=== PATIENT | male | born 1980 | race Hispanic/Latino ===

== ENCOUNTER 2016-10-26 17:12 | Emergency (ER) | payer SELFPAY ==
[2016-10-26] MEDS ORDERED: SODIUM CHLORIDE 0.9% (FLUSH) 10 ML SYG IV PRN (17:46)
[2016-10-26 17:57] VITALS: TEMP 97.9
--- NOTE | 2016-10-26 18:28 | ED.PDOC ---
History of Present Illness - General Chief Complaint: Cardiovascular Problem Stated Complaint: palpitations, elevated BP Time Seen by Provider: 10/26/16 17:45 Source: patient, RN notes reviewed, Vital Signs reviewed Exam Limitations: language barrier Additional Information: Forming Machine Tender used. - History of Present Illness Initial Comments: Patient is a 36 y/o male who has been checking his blood pressure for the past two days as it has been elevated. Today, it is in the 170s/110s. He initially came in for a blood pressure check, however the nurse encouraged him to be seen in the ED. He reports chest pain on the left, mild. He has had mild shortness of breath. In the morning, he is nauseous and diaphoretic. This has been going on for over a month. He does not smoke. He drinks 12 to 18 beers a day. He uses no elicit drugs. He does not know his family history. 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 He is not up to date on his immunizations. He does not have a PCP. He has not travelled outside of the [place] in the past three months. Timing/Duration: unsure Severity: moderate Improving Factors: other - beer Worsening Factors: nothing Associated Symptoms: chest pain, cough, diaphoresis, nausea/vomiting, shortness of breath Allergies/Adverse Reactions: Allergies NO KNOWN ALLERGY Allergy (Verified 10/26/16 17:58) Review of Systems - Review of Systems Constitutional: States: no symptoms reported. Denies: chills, fever EENTM: States: no symptoms reported Respiratory: States: cough, short of breath Cardiology: States: chest pain, palpitations Gastrointestinal/Abdominal: States: nausea Genitourinary: States: no symptoms reported Musculoskeletal: States: no symptoms reported Skin: States: no symptoms reported Neurological: States: no symptoms reported Endocrine: States: no symptoms reported Hematologic/Lymphatic: States: no symptoms reported All other Systems: Reviewed and Negative Past Medical History (General) - Patient Medical History Hx Seizures: No Hx Stroke: No Hx Dementia: No Hx Asthma: No Hx of COPD: No Hx Cardiac Disorders: No Hx Congestive Heart Failure: No Hx Pacemaker: No Hx Hypertension: No Hx Thyroid Disease: No Hx Diabetes: No Hx Gastroesophageal Reflux: No Hx Renal Disease: No - Vaccination History Hx Influenza Vaccination: No - Social History Hx Tobacco Use: No Family Medical History - Family History Father Family History: Unknown Living Status: Unknown Physical Exam - Physical Exam General Appearance: Alert, Anxious, Comfortable, No apparent distress Eye Exam: bilateral normal Ears, Nose, Throat: hearing grossly normal, normal ENT inspection Neck: non-tender, full range of motion, supple Respiratory: lungs clear, normal breath sounds, no respiratory distress, no accessory muscle use Cardiovascular/Chest: regular rate, rhythm, no edema, no gallop, no murmur Gastrointestinal/Abdominal: normal bowel sounds, soft, no organomegaly, tenderness - LUQ Back Exam: no CVA tenderness Extremity: normal range of motion, non-tender, normal inspection, no pedal edema , no calf tenderness Neurologic: alert, normal mood/affect, oriented x 3 Skin Exam: normal color, warm/dry Progress - EKG/XRAY/CT EKG: Sinus - 68 bpm, no ST T wave changes Comments: NML axis, NML intervals, no comparison available--NSR XRAY: chest Xray Comments: No acute process Departure - Departure Disposition: Discharge to Home or Self Care Departure Forms: ED Discharge - Pt. Copy, Patient Portal Self Enrollment Addendum entered and electronically signed by Mehdi Lindo MD 10/26/16 21 :01: Departure - Departure Clinical Impression: Alcohol abuse, daily use Hypertension Qualifiers: Hypertension type: other secondary hypertension Qualifier Code: (I15.8) Other secondary hypertension Time of Disposition: 20:48 Disposition: Discharge to Home or Self Care Condition: Good Departure Forms: ED Discharge - Pt. Copy, Patient Portal Self Enrollment Instructions: DI for Alcohol Abuse and Alcoholism, Alcohol Abuse and Alcoholism , Recommendations to Help Prevent High Blood Pressure, Treatments for High Blood Pressure: More Than Just Taking a Pill Prescriptions: Amlodipine Besylate 5 mg PO DAILY #30 tab Home Medications: Ambulatory Orders Amlodipine Besylate 5 mg PO DAILY #30 tab 10/26/16 Additional Instructions: NEED TO FOLLOW UP WITH PRIMARY MD IN ONE WEEK PATIENT TO CALL FOR APPOINTMENT; RETURN TO EMERGENCY ROOM NEEDED
[2016-10-26] MEDS ORDERED: cloNIDine HCL 0.1 MG TAB PO ONE (19:09)
--- NOTE | 2016-10-26 20:11 | RAD ---
EXAM DESCRIPTION: Chest,1 View CLINICAL HISTORY: Midsternal and intercostal chest wall pain, shortness of breath COMPARISON: None FINDINGS: Cardiac silhouette is within normal limits. EKG leads project over the chest. There is no focal parenchymal or pleural disease. There is no acute osseous process visualized. IMPRESSION: No evidence of acute cardiopulmonary disease. Electronically signed by: Lobo Mehta MD 10/26/2016 8:10 PM CDT
[2016-10-26 20:20] VITALS: O2SAT 97
[2016-10-26 21:17] VITALS: BP 152/88
== END 2016-10-26 21:06 | disposition home or self-care (01) ==
LOC: ER 17:12
DX: I15.8 Other secondary hypertension (principal); F10.10 Alcohol abuse, uncomplicated

== ENCOUNTER 2016-12-11 22:15 | Emergency (ER) | payer SELFPAY ==
[2016-12-11 22:42] VITALS: TEMP 96.8; O2SAT 98
[2016-12-11] MEDS ORDERED: cloNIDine HCL 0.1 MG TAB PO ONE (22:50)
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
[2016-12-11 23:29] VITALS: BP 152/90
== END 2016-12-11 23:29 | disposition home or self-care (01) ==
LOC: ER 22:15
DX: I10 Essential (primary) hypertension (principal); F10.10 Alcohol abuse, uncomplicated

== ENCOUNTER 2017-02-12 20:23 | Emergency (ER) | payer SELFPAY ==
--- NOTE | 2017-02-12 20:58 | RAD ---
PROCEDURE: Chest,2 Views CLINICAL HISTORY: Chest pain INDICATION: Same as above COMPARISON: 10/26/2016 TECHNIQUE: PA and and lateral chest radiographs were obtained. FINDINGS: The lung barajas are well inflated. There are no discrete airspace infiltrates, pneumothoraces or pleural effusions. The pulmonary vascularity is normal The cardiomediastinal silhouette is unremarkable for patient's age and sex. IMPRESSION: There is no acute pleural-parenchymal process seen in the imaged lung barajas. Place of interpretation: [facility]. Electronically signed by: Darius Zendejas MD 02/12/2017 8:56 PM CDT Workstation: [id number]
[2017-02-12] MEDS ORDERED: CHLORHEXIDINE GLUCONATE 4 % 15 ML UD TOP ONE (21:01)
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
[2017-02-12 21:09] VITALS: TEMP 98.7
[2017-02-12] MEDS ORDERED: LISINOPRIL 10 MG TAB PO ONE (21:19)
[2017-02-12] MEDS ORDERED: SULFA/TRIMETH 800/160 (DS) TAB 1 EA TAB PO ONE (21:19)
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
[2017-02-12 21:45] VITALS: BP 145/101; O2SAT 100
== END 2017-02-12 22:00 | disposition home or self-care (01) ==
LOC: ER 20:23
DX: S00.83XA Contusion of other part of head, initial encounter (principal); S01.81XA Laceration without foreign body of other part of head, initial encounter; I10 Essential (primary) hypertension; Y04.1XXA Assault by human bite, initial encounter; Y92.9 Unspecified place or not applicable

== ENCOUNTER 2017-05-08 17:23 | Emergency (ER) | payer SELFPAY ==
[2017-05-08] MEDS ORDERED: amLODIPine BESYLATE 5 MG TAB PO ONE (17:57)
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
--- NOTE | 2017-05-08 18:19 | RAD ---
EXAM DESCRIPTION: Chest,1 View CLINICAL HISTORY: chest pain COMPARISON: 12 February 2017 TECHNIQUE: AP portable chest FINDINGS: The lungs are clear. There is no infiltrate or effusion. The heart is normal size. IMPRESSION: Normal portable chest Electronically signed by: Yaya Luke MD 05/08/2017 6:17 PM CDT
[2017-05-08] MEDS ORDERED: SODIUM CHLORIDE 0.9% 1000ML 1,000 ML IVS ONE (18:46)
[2017-05-08] MEDS ORDERED: LISINOPRIL 10 MG TAB PO ONE (18:53)
[2017-05-08 19:27] VITALS: O2SAT 99
[2017-05-08 21:11] VITALS: BP 131/73; TEMP 98.7
== END 2017-05-08 21:11 | disposition home or self-care (01) ==
LOC: ER 17:23
DX: R07.9 Chest pain, unspecified (principal); I10 Essential (primary) hypertension; F10.10 Alcohol abuse, uncomplicated
CPT/HCPCS: 36415; 71010; 80053; 82550; 82553; 84484; 85025; 93005; J7030

== ENCOUNTER 2017-10-11 17:05 | Emergency (ER) | payer SELFPAY ==
[2017-10-11] MEDS ORDERED: ALUM & MAG HYDROX-SIMETHICONE 30 ML, LIDOCAINE VISCOUS 2% 15 ML PO ONE ×2 (17:38)
[2017-10-11] MEDS ORDERED: SODIUM CHLORIDE 0.9% 1000ML 1,000 ML IVS ONE ×2 (17:46→20:37)
[2017-10-11] MEDS ORDERED: PANTOPRAZOLE SODIUM IV 40 MG VIAL IV ONE (17:47)
[2017-10-11] MEDS ORDERED: SUCRALFATE 1 GM/10 ML 1 GM UD PO ONE (17:47)
[2017-10-11 17:49] VITALS: TEMP 99
[2017-10-11] MEDS ORDERED: ALUM & MAG HYDROX-SIMETHICONE 30 ML UD ONE (17:55)
[2017-10-11] MEDS ORDERED: LIDOCAINE HCL 2% (MOUTH-THROAT) 15 ML UD ONE (17:55)
[2017-10-11] MEDS ORDERED: FOLIC ACID INJ 5 MG/ML VIAL IV ONE (18:20)
--- NOTE | 2017-10-11 18:22 | RAD ---
EXAM: Chest,2 Views (accession [id number]), Abdomen Flat Upright (accession [id number]) CLINICAL INDICATION: 37-year-old male with chest pain. TECHNIQUE: Single view, PA chest was obtained. Two views of the abdomen were obtained in upright and supine positioning. COMPARISON: Single view chest 05/08/2017. FINDINGS: Chest: Unremarkable cardiac and mediastinal silhouette. Heart size is normal. Lungs are clear without focal opacity, pneumothorax or pleural effusions. The visualized bones are within normal limits. Abdomen: Gas is seen within normal caliber small and large bowel. No free air is identified. There are no abnormal calcifications. The osseous structures are within normal limits. IMPRESSION: 1. No acute cardiopulmonary abnormalities. 2. Normal bowel gas pattern. Electronically signed by: Adalgisa Ramírez MD 10/11/2017 6:20 PM CDT
--- NOTE | 2017-10-11 18:22 | RAD ---
EXAM: Chest,2 Views (accession [id number]), Abdomen Flat Upright (accession [id number]) CLINICAL INDICATION: 37-year-old male with chest pain. TECHNIQUE: Single view, PA chest was obtained. Two views of the abdomen were obtained in upright and supine positioning. COMPARISON: Single view chest 05/08/2017. FINDINGS: Chest: Unremarkable cardiac and mediastinal silhouette. Heart size is normal. Lungs are clear without focal opacity, pneumothorax or pleural effusions. The visualized bones are within normal limits. Abdomen: Gas is seen within normal caliber small and large bowel. No free air is identified. There are no abnormal calcifications. The osseous structures are within normal limits. IMPRESSION: 1. No acute cardiopulmonary abnormalities. 2. Normal bowel gas pattern. Electronically signed by: Adalgisa Ramírez MD 10/11/2017 6:20 PM CDT
[2017-10-11] MEDS ORDERED: THIAMINE HCL INJ 100 MG/ML VIAL ONE (19:00)
[2017-10-11] MEDS ORDERED: SODIUM CHLORIDE 0.9% 100ML 100 ML IVPB ONE (19:03)
--- NOTE | 2017-10-12 00:14 | ED.PDOC ---
History of Present Illness - General Chief Complaint: Cardiovascular Problem Stated Complaint: elevated blood pressure;diarrhea Time Seen by Provider: 10/11/17 17:20 Source: patient Exam Limitations: no limitations - History of Present Illness Initial Comments: The patient is a 37-year-old male presenting to the emergency room secondary to 5 days of symptoms primarily of mild nausea with intermittent diarrhea. The patient reports poor oral intake over the last 5 days. He does have a history of gastritis but is not taking any medications for it. He does have a history of hypertension but is not currently taking those medications as well. The patient does have a very significant history of heavy alcohol intake. Previously he has had a blood alcohol level here up to 436. He is slightly drowsy here today. He is able to give his full medical history in detail his symptoms currently. He denies any blood in the stool. Diarrhea is watery and he reports every couple of hours over the last couple of days. He has not been eating or drinking anything with any nutrition but he has still been taking and alcohol. The patient converses as well as most people that have had 1-2 drinks. He is ambulatory without difficulty. No chest pain or palpitations. No syncope or near syncope. No recent trauma. the patient does report that he felt like his legs have been heavy for the last couple of days. Timing/Duration: unsure Severity: moderate Improving Factors: nothing Worsening Factors: nothing Associated Symptoms: loss of appetite, malaise, nausea/vomiting, weakness Allergies/Adverse Reactions: Allergies NO KNOWN ALLERGY Allergy (Verified 05/08/17 17:47) Home Medications: Ambulatory Orders Amlodipine Besylate 5 mg PO DAILY #30 tab 10/26/16 Lisinopril 10 mg PO QDPC #30 tab 02/12/17 Amlodipine Besylate 5 mg PO DAILY #30 tab 05/08/17 Lisinopril 10 mg PO DAILY #30 tab 05/08/17 Sucralfate Tab [Carafate Tab] 1 gm PO Q8HR #90 tab 10/12/17 Review of Systems - Review of Systems Constitutional: States: malaise, weakness EENTM: States: no symptoms reported Respiratory: States: no symptoms reported Cardiology: States: no symptoms reported Gastrointestinal/Abdominal: States: abdominal pain - rimarily epigastric, diarrhea, nausea Genitourinary: States: no symptoms reported Musculoskeletal: States: no symptoms reported Skin: States: no symptoms reported Neurological: States: tremors - ild, weakness Endocrine: States: no symptoms reported All other Systems: No Change from Baseline Past Medical History (General) - Patient Medical History Hx Seizures: No Hx Stroke: No Hx Dementia: No Hx Asthma: No Hx of COPD: No Hx Cardiac Disorders: No Hx Congestive Heart Failure: No Hx Pacemaker: No Hx Hypertension: Yes Hx Thyroid Disease: No Hx Diabetes: No Hx Gastroesophageal Reflux: No Hx Renal Disease: No Hx Cancer: No Hx Hepatitis C: No - Vaccination History Hx Tetanus, Diphtheria Vaccination: No Hx Influenza Vaccination: No Hx Pneumococcal Vaccination: No - Social History Hx Tobacco Use: No Hx Chewing Tobacco Use: No Hx Alcohol Use: Yes - approx 6 beers/day Hx Substance Use: No Hx Substance Use Treatment: No Hx Physical Abuse: No Hx Emotional Abuse: No Hx Suspected Abuse: No Family Medical History - Family History Father Family History: Unknown Living Status: Unknown Mother Living Status: Still Living Hx Family Hypertension: Yes Physical Exam - Physical Exam General Appearance: Alert, No apparent distress Eye Exam: bilateral normal - mildly bloodshot Ears, Nose, Throat: hearing grossly normal, normal ENT inspection, normal pharynx Neck: full range of motion, supple Respiratory: lungs clear, normal breath sounds, no respiratory distress, no accessory muscle use Cardiovascular/Chest: normal peripheral pulses, regular rate, rhythm, no edema Peripheral Pulses: radial,right: 2+, radial,left: 2+, dorsalis pedis,right: 2+, dorsalis pedis,left: 2+ Gastrointestinal/Abdominal: soft, other - mild epigastric discomfort palpation. No rebound or peritoneal signs. No palpable masses. 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, alert, normal mood/affect, oriented x 3 DTR: 2+: Patellar, left, Patellar, right Skin Exam: normal color Comments: Vital Signs - 24 hr 10/11/17 10/11/17 10/11/17 17:40 18:36 19:36 Temperature 99.0 F Pulse Rate [ 98 H 81 81 apical] Respiratory 20 20 20 Rate Blood Pressure 150/104 149/99 163/96 [left brachial] O2 Sat by Pulse 97 99 100 Oximetry 10/11/17 10/11/17 10/11/17 21:25 22:24 23:00 Temperature Pulse Rate [ 83 79 81 apical] Respiratory 20 20 16 Rate Blood Pressure 121/86 127/84 120/84 [left brachial] O2 Sat by Pulse 98 99 96 Oximetry Progress - Progress Progress: 10/12/17 00:17 the patient is a 37-year-old male presenting to the emergency room due to what I believe are complications of heavy drinking. The patient appears to have a significant gastritis and is going to be written for Carafate for 3 times daily use for the next month. He needs to cut down his alcohol intake by at least two thirds in order to help revert his symptoms. The patient also needs to brain picker Centrum Silver and take 1 tablet twice daily. He also needs to brain picker some thiamine and take 100 mg daily for the next 3 months. It is possible he may be starting to have complications neurologically from heavy drinking. He does need to follow up with his primary care doctor to be reassessed from that standpoint in the coming week when he is no longer intoxicated. He has received a dose of thiamine and folic acid here along with several liters of IV fluids here today. I do believe his intestinal symptoms will clear up with a reduction in his alcohol intake. He does need to increase his food intake as he is fairly skinny and this should also help prevent nutritional deficiencies associated with heavy alcohol intake. The patient has been monitored for approximately 7 hours and has demonstrated no clinical instability. The patient can be discharged home but he is to drink no further alcohol tonight. He is also of course not to drive tonight. - Results/Orders Results/Orders: 10/11/17 17:38 Telemetry .CONTINUOUS 10/11/17 17:39 EKG Assessment ONCE 10/11/17 17:45 EKG STAT EKG STAT 10/12/17 17:47 Thiamine HCl Inj 100 mg Sodium Chloride 0.9% 100Ml [NS (NACL 0.9%) 100ml] 100 ml IVPB ONCE Laboratory Results - last 24 hr 10/11/17 10/11/17 10/11/17 17:50 17:50 17:50 WBC 5.1 RBC 5.15 Hgb 16.7 Hct 47.3 MCV 91.9 MCH 32.4 H MCHC 35.3 RDW 13.7 Plt Count 301 MPV 7.0 L Absolute Neuts (auto) 2.50 Absolute Lymphs (auto) 2.30 Absolute Monos (auto) 0.20 Absolute Eos (auto) 0.00 Absolute Basos (auto) 0.10 Neutrophils % 49.5 Lymphocytes % 46.0 Monocytes % 3.2 Eosinophils % 0.3 L Basophils % 1.0 PT 10.6 INR 0.940 PTT (SP) 35.9 Sodium 141 Potassium 3.6 Chloride 106 Carbon Dioxide 20 L Anion Gap 18.6 H BUN < 5 L Creatinine 0.66 BUN/Creatinine Ratio 7.6 L Random Glucose 103 Serum Osmolality 278.4 Calcium 9.9 Magnesium Total Bilirubin 1.1 H AST 39 ALT 29 Alkaline Phosphatase 85 Creatine Kinase 149 CK-MB (CK-2) 2.2 CK-MB (CK-2) % Not Reportable Troponin I < 0.02 B-Natriuretic Peptide < 5.0 Serum Total Protein 8.6 H Albumin 5.1 Globulin 3.5 Albumin/Globulin Ratio 1.5 Amylase 72 TSH Urine Color Urine Appearance Urine pH Ur Specific [place] Urine Protein Urine Glucose (UA) Urine Ketones Urine Blood Urine Nitrite Urine Bilirubin Urine Urobilinogen Ur Leukocyte Esterase Urine RBC Urine WBC Ur Epithelial Cells Urine Bacteria Ethyl Alcohol 10/11/17 10/11/17 10/11/17 17:50 17:50 18:30 WBC RBC Hgb Hct MCV MCH MCHC RDW Plt Count MPV Absolute Neuts (auto) Absolute Lymphs (auto) Absolute Monos (auto) Absolute Eos (auto) Absolute Basos (auto) Neutrophils % Lymphocytes % Monocytes % Eosinophils % Basophils % PT INR PTT (SP) Sodium Potassium Chloride Carbon Dioxide Anion Gap BUN Creatinine BUN/Creatinine Ratio Random Glucose Serum Osmolality Calcium Magnesium 2.2 Total Bilirubin AST ALT Alkaline Phosphatase Creatine Kinase CK-MB (CK-2) CK-MB (CK-2) % Troponin I B-Natriuretic Peptide Serum Total Protein Albumin Globulin Albumin/Globulin Ratio Amylase TSH 1.87 Urine Color Yellow Urine Appearance Clear Urine pH 6.5 Ur Specific [place] 1.010 Urine Protein Negative Urine Glucose (UA) Negative Urine Ketones Negative Urine Blood Negative Urine Nitrite Negative Urine Bilirubin Negative Urine Urobilinogen 0.2 Ur Leukocyte Esterase Negative Urine RBC 0 Urine WBC 0 Ur Epithelial Cells 0 Urine Bacteria 0 Ethyl Alcohol 441.40 H* 10/11/17 22:56 WBC RBC Hgb Hct MCV MCH MCHC RDW Plt Count MPV Absolute Neuts (auto) Absolute Lymphs (auto) Absolute Monos (auto) Absolute Eos (auto) Absolute Basos (auto) Neutrophils % Lymphocytes % Monocytes % Eosinophils % Basophils % PT INR PTT (SP) Sodium Potassium Chloride Carbon Dioxide Anion Gap BUN Creatinine BUN/Creatinine Ratio Random Glucose Serum Osmolality Calcium Magnesium Total Bilirubin AST ALT Alkaline Phosphatase Creatine Kinase CK-MB (CK-2) CK-MB (CK-2) % Troponin I B-Natriuretic Peptide Serum Total Protein Albumin Globulin Albumin/Globulin Ratio Amylase TSH Urine Color Urine Appearance Urine pH Ur Specific [place] Urine Protein Urine Glucose (UA) Urine Ketones Urine Blood Urine Nitrite Urine Bilirubin Urine Urobilinogen Ur Leukocyte Esterase Urine RBC Urine WBC Ur Epithelial Cells Urine Bacteria Ethyl Alcohol 260.40 H* the patient has remained in normal sinus rhythm throughout his stay Of note the patient has only gone to the bathroom with one episode of diarrhea since he has been here. Departure - Departure Clinical Impression: Alcohol abuse Gastritis Qualifiers: Gastritis type: alcoholic Chronicity: acute Gastritis bleeding: without bleeding Qualified Code(s): K29.20 - Alcoholic gastritis without bleeding Disposition: Discharge to Home or Self Care Condition: Fair Departure Forms: ED Discharge - Pt. Copy, Patient Portal Self Enrollment Instructions: DI for Alcoholic Gastritis, DI for Alcohol Poisoning, DI for Alcohol Abuse and Alcoholism Referrals: Salvatore Marroquin MD [Primary Care Provider] - 1-2 Weeks Prescriptions: Sucralfate Tab [Carafate Tab] 1 gm PO Q8HR #90 tab Home Medications: Ambulatory Orders Amlodipine Besylate 5 mg PO DAILY #30 tab 10/26/16 Lisinopril 10 mg PO QDPC #30 tab 02/12/17 Amlodipine Besylate 5 mg PO DAILY #30 tab 05/08/17 Lisinopril 10 mg PO DAILY #30 tab 05/08/17 Sucralfate Tab [Carafate Tab] 1 gm PO Q8HR #90 tab 10/12/17 Additional Instructions: the patient is a 37-year-old male presenting to the emergency room due to what I believe are complications of heavy drinking. The patient appears to have a significant gastritis and is going to be written for Carafate for 3 times daily use for the next month. He needs to cut down his alcohol intake by at least two thirds in order to help revert his symptoms. The patient also needs to brain picker Centrum Silver and take 1 tablet twice daily. He also needs to brain picker some thiamine and take 100 mg daily for the next 3 months. It is possible he may be starting to have complications neurologically from heavy drinking. He does need to follow up with his primary care doctor to be reassessed from that standpoint in the coming week when he is no longer intoxicated. He has received a dose of thiamine and folic acid here along with several liters of IV fluids here today. I do believe his intestinal symptoms will clear up with a reduction in his alcohol intake. He does need to increase his food intake as he is fairly skinny and this should also help prevent nutritional deficiencies associated with heavy alcohol intake. The patient has been monitored for approximately 7 hours and has demonstrated no clinical instability. The patient can be discharged home but he is to drink no further alcohol tonight. He is also of course not to drive tonight. Print Language: Bhutanese
[2017-10-12 00:52] VITALS: BP 146/81; O2SAT 99
[2017-10-12] MEDS ORDERED: THIAMINE HCL INJ 100 MG in SODIUM CHLORIDE 0.9% 100ML 100 ML IVPB ONE (17:47)
== END 2017-10-12 00:54 | disposition home or self-care (01) ==
LOC: ER 17:05
DX: K29.20 Alcoholic gastritis without bleeding (principal); F10.129 Alcohol abuse with intoxication, unspecified; Y90.8 Blood alcohol level of 240 mg/100 ml or more; I10 Essential (primary) hypertension
CPT/HCPCS: 36415; 71046; 74019; 80053; 80320; 81001; 82150; 82550; 82553; 83735; 83880; 84443; 84484; 85025; 85610; 85730; 93005; J3411; J7030; J7050

== ENCOUNTER 2017-12-11 13:56 | Emergency (ER) | payer SELFPAY ==
[2017-12-11] MEDS ORDERED: SODIUM CHLORIDE 0.9% 1000ML 1,000 ML IVS ONE (14:47)
--- NOTE | 2017-12-11 14:54 | ED.PDOC ---
History of Present Illness - General Chief Complaint: Cardiovascular Problem Stated Complaint: Elevated BP Time Seen by Provider: 12/11/17 14:18 Source: patient, family Exam Limitations: language barrier - PTS SON INTERPRETED Additional Information: PT C/O L SIDED CP ONSET TODAY. ADMITS TO DRINKING AT LEAST 48OZ OF BEER TODAY. HX LIMITED BY PT'S CONDITION. ROS FELT TO BE LIMITED. - History of Present Illness Timing/Duration: 4-6 hours Severity/Quality: mild Location: other - L SIDED Chest Pain Radiation: no radiation Activities at Onset: none Improving Factors: nothing Worsening Factors: nothing Associated Symptoms: diaphoresis, nausea/vomiting, shortness of breath Allergies/Adverse Reactions: Allergies NO KNOWN ALLERGY Allergy (Verified 12/11/17 14:35) Home Medications: Ambulatory Orders Amlodipine Besylate 5 mg PO DAILY #30 tab 10/26/16 Esomeprazole Magnesium [Nexium] 40 mg PO DAILY #15 cap 12/11/17 Review of Systems - Review of Systems Constitutional: Denies: chills, fever EENTM: States: no symptoms reported Respiratory: States: short of breath. Denies: cough, wheezing Cardiology: States: chest pain. Denies: palpitations, syncope Gastrointestinal/Abdominal: States: nausea. Denies: abdominal pain, vomiting Genitourinary: States: no symptoms reported Musculoskeletal: States: no symptoms reported Skin: States: other - DIAPHORESIS Neurological: States: no symptoms reported Endocrine: States: no symptoms reported Hematologic/Lymphatic: States: no symptoms reported Past Medical History (General) - Patient Medical History Hx Seizures: No Hx Stroke: No Hx Dementia: No Hx Asthma: No Hx of COPD: No Hx Cardiac Disorders: No Hx Congestive Heart Failure: No Hx Pacemaker: No Hx Hypertension: Yes Hx Thyroid Disease: No Hx Diabetes: No Hx Gastroesophageal Reflux: No Hx Renal Disease: No Hx Cancer: No Hx Hepatitis C: No - Vaccination History Hx Tetanus, Diphtheria Vaccination: No Hx Influenza Vaccination: No Hx Pneumococcal Vaccination: No - Social History Hx Tobacco Use: No Hx Chewing Tobacco Use: No Hx Alcohol Use: Yes - approx 6 beers/day Hx Substance Use: No Hx Substance Use Treatment: No Hx Physical Abuse: No Hx Emotional Abuse: No Hx Suspected Abuse: No Family Medical History - Family History Father Family History: Unknown Living Status: Unknown Mother Living Status: Still Living Hx Family Hypertension: Yes Physical Exam - Physical Exam General Appearance: Alert, No apparent distress, Other - APPEARS INTOXICATED. Eyes, Ears, Nose, Throat Exam: PERRL/EOMI Neck: non-tender, full range of motion, supple Respiratory: lungs clear, normal breath sounds, no respiratory distress Cardiovascular/Chest: regular rate, rhythm, no murmur Gastrointestinal/Abdominal: normal bowel sounds, non tender, soft, no organomegaly Extremity: normal range of motion, non-tender, normal inspection, no pedal edema Neurologic: no motor/sensory deficits, normal mood/affect Skin Exam: normal color, warm/dry Lymphatic: no adenopathy Progress - EKG/XRAY/CT EKG: Sinus, Tachy - RATE 102, NL AXIS, NL INTERVALS, , nonspecific ST T wave Chg - NAIP, Changed from - 10/11/17, INTERVAL DEVELOPMENT OF NON SPECIFIC T WAVE CHANGES. Departure - Departure Clinical Impression: Gastritis Qualifiers: Gastritis type: alcoholic Chronicity: acute Gastritis bleeding: without bleeding Qualified Code(s): K29.20 - Alcoholic gastritis without bleeding Alcohol intoxication Qualifiers: Complication of substance-induced condition: uncomplicated Qualified Code(s): F10.920 - Alcohol use, unspecified with intoxication, uncomplicated Hypertension Qualifiers: Hypertension type: essential hypertension Qualified Code(s): I10 - Essential ( primary) hypertension Time of Disposition: 17:39 Disposition: Discharge to Home or Self Care Condition: Good Departure Forms: ED Discharge - Pt. Copy, Patient Portal Self Enrollment Instructions: DI for Alcoholic Gastritis Referrals: Salvatore Marroquin MD [Primary Care Provider] - 1-2 Weeks Prescriptions: Esomeprazole Magnesium [Nexium] 40 mg PO DAILY #15 cap Home Medications: Ambulatory Orders Amlodipine Besylate 5 mg PO DAILY #30 tab 10/26/16 Esomeprazole Magnesium [Nexium] 40 mg PO DAILY #15 cap 12/11/17
--- NOTE | 2017-12-11 15:02 | RAD ---
EXAM DESCRIPTION: Chest,1 View CLINICAL HISTORY: 37 years Male, CP COMPARISON: October 11, 2017 TECHNIQUE: AP portable chest. FINDINGS: Fair expansion of the lungs is evident without consolidation, layering effusion, or large mass. Heart size and vascularity appear normal for AP technique and degree of inspiration. No gross bony, hilar, or mediastinal abnormalities are noted. IMPRESSION: Normal chest, one view Electronically signed by: Salvatore Hernandez MD 12/11/2017 3:01 PM CDT
[2017-12-11 16:24] VITALS: O2SAT 100
[2017-12-11 17:51] VITALS: BP 140/80; TEMP 98.2
== END 2017-12-11 17:51 | disposition home or self-care (01) ==
LOC: ER 13:56
DX: I10 Essential (primary) hypertension (principal); K29.20 Alcoholic gastritis without bleeding; R07.9 Chest pain, unspecified; R00.0 Tachycardia, unspecified; F10.129 Alcohol abuse with intoxication, unspecified; Y90.8 Blood alcohol level of 240 mg/100 ml or more
CPT/HCPCS: 36415; 71045; 80053; 80320; 81001; 84484; 85025; 93005; J7030